=== PATIENT | male | born 1995 | race Two or more races ===

== ENCOUNTER 2020-07-06 14:47 | Emergency (ER) | payer MEDICAID, SELFPAY ==
--- NOTE | ~2020-07-06 | XR_ITS ---
EXAMINATION: XR CHEST CLINICAL INFORMATION: Chest pain COMPARISON: 08/24/2018 TECHNIQUE: Frontal view of the chest was obtained. FINDINGS: No significant abnormality is noted involving the heart, lungs, mediastinum, bony thorax or soft tissues. XR/XR chest 1V IMPRESSION: Unremarkable examination.
[2020-07-06 14:50] VITALS: BP 106/72; PULSE 83; RESP 20; TEMP 37.7; O2SAT 98; BMI 19.6
--- NOTE | 2020-07-06 15:05 | ECG_ITS ---
Test Reason : CHEST PAIN Blood Pressure : / mmHG Vent. Rate : 065 BPM Atrial Rate : 065 BPM P-R Int : 140 ms QRS Dur : 090 ms QT Int : 398 ms P-R-T Axes : 050 000 001 degrees QTc Int : 413 ms Normal sinus rhythm Normal ECG No previous ECGs available Referred By: Generic ED Physician Electronically Signed By:ZOLTAN KHAN MD
[2020-07-06 15:29] LABS: MANUAL DIFF FLAG NO
[2020-07-06 15:38] LABS: Basophils Absolute Auto 0.1 X10*3/uL (0.0-0.2); Basophils Percent Auto 0.5 % (0-2); Eosinophils Absolute Auto 0.1 X10*3/uL (0.0-0.4); Eosinophils Percent Auto 0.8 % (0-4); Hematocrit 41.2 % (42-52); Hemoglobin 14.2 g/dl (14.0-18.0); Imm Gran Abs Auto 0.04 X10*3/uL (0.00-0.03); Imm Gran Pct Auto 0.3 % (0.0-0.4); Lymphocytes Percent Auto 8.6 % (20-40); Mean Corpuscular HGB Conc 34.5 g/dl (31.0-36.0); Mean Corpuscular Hemoglobin 31.7 pg (27.0-33.0); Mean Platelet Volume 10.3 fL (9.4-12.4); Monocytes Absolute Auto 0.5 X10*3/uL (0.1-1.2); Monocytes Percent Auto 4.5 % (2-11); Neutrophils Absolute Auto 10.1 X10*3/uL (2.0-8.3); Neutrophils Percent Auto 85.3 % (45-73); Platelet Count 250 X10*3/uL (160-400); Red Blood Count 4.48 X10*6/uL (4.60-5.80); Red Cell Distribution Width 11.6 % (11.0-16.0); White Blood Count 11.9 X10*3/uL (4.8-10.8)
[2020-07-06 15:54] LABS: Anion Gap 18 (12-20); Blood Urea Nitrogen 10 mg/dL (9-16); Calcium 9.7 mg/dL (8.4-10.2); Carbon Dioxide 19 mmol/L (22-29); Chloride 111 mmol/L (96-108); Creatinine Clr Calc Pharmacy 130.1; Estimated Glomerular Filt Rate > 60; Glucose Random 97 mg/dL (60-115); Lipase 17 U/L (8-78); Potassium 3.6 mmol/L (3.3-5.1); Sodium 144 mmol/L (135-145)
[2020-07-06 16:00] LABS: Troponin-I High Sensitivity < 3.5 ng/L (<3.5-35.0)
[2020-07-06 16:04] VITALS: BP 122/61; PULSE 90; RESP 18; TEMP 36.3; O2SAT 99
--- NOTE | 2020-07-06 16:04 | ED_ITS ---
HPI - Chest Pain General Chief Complaint: Chest Pain Stated Complaint: CHEST PAIN Time Seen by Provider: 07/06/20 15:14 Source: patient Mode of arrival: ambulatory Limitations: no limitations History of Present Illness HPI narrative: 25 yo male using pills for months now, wants to get off of them unsure what they were but thinks it was fentanyl, he took an oxy today then about 1.5 hours later took a suboxone because he had restless legs now he notes he feels terrible, anxious, sweaty, wants to crawl out of his skin, his chest hurts this all started around 1pm, did take suboxone for a year in the past MD complaint: chest pain Onset (ago): hour(s) (1pm today) Prior episodes: No Onset: associated with drug use Pain location: substernal Pain radiation: none Severity: moderate Quality: aching Relieving factors: nothing Exacerbating factors: nothing Context: other (started right after suboxone use) Associated symptoms: nausea, diaphoresis, dyspnea and sense of impending doom Treatment prior to arrival: none Related Data Previous Rx's Medication Instructions Recorded lorazepam [Ativan] 1 mg PO TID PRN #4 tab 07/06/20 ondansetron 4 mg PO Q8H PRN #20 tab 07/06/20 Allergies Allergy/AdvReac Type Severity Reaction Status Date / Time nickel [NICKEL] Allergy Unknown RASH Unverified 11/23/19 16:17 Review of Systems Review of Systems: Constitutional : No Weight loss, No Fever, pos Chills ENT/Mouth : No sore throat, No Rhinorrhea Eyes: No Eye Pain, No Swelling Cardiovascular : pos Chest Pain, pos SOB, no Dyspnea on Exertion, No Orthopnea, No Edema, No Palpitations Respiratory : No Cough, No Sputum Gastrointestinal : pos Nausea, No Vomiting, No Diarrhea, No abdominal Pain, No Hematochezia, No Melena Genitourinary : No Dysuria, No Urinary Frequency Musculoskeletal : No joint pain, pos Myalgias, No Joint Swelling Skin : No Skin Lesions, No rash Neuro : No Weakness, No Numbness, No Dizziness, No Headache Psych : pos Anxiety/Panic, No Depression Heme/Lymph: No Bruising, No Lymphadenopathy Endocrine : No Polyuria, No Polydipsia All other systems reviewed and are negative PMFSH Past Medical History Attestation statement: The following information was validated with the patient. Medical History Asthma Drug abuse Social History Social History Alcohol intake: unknown Smoking Status: Unknown if ever smoked Use of substances other than those prescribed or required for medical reasons: Yes Substance Use Type: Opiates Advance Directives: No Advance Directives Information Provided: No Physical Exam Vital Signs: Vital Signs: Last Vital Signs Temp 97.4 F 07/06/20 16:04 Pulse 69 07/06/20 17:29 Resp 18 07/06/20 16:04 BP 130/67 07/06/20 17:29 Pulse Ox 99 07/06/20 16:04 Body Mass Index 19.6 Appearance: Alert. Oriented X3. Anxious, mild acute distress. Eyes: Pupils equal, round and reactive to light. ENT: Pharynx normal. Neck: Normal inspection. Neck supple. CVS: Normal heart rate and rhythm. Pulses normal. Respiratory: No respiratory distress. Breath sounds normal. Abdomen: Soft and non-tender. Skin: Skin warm and dry. Normal skin color. Normal skin turgor. Extremities: No lower extremity edema. No calf ttp Neuro: Oriented X 3. No motor deficit. No sensory deficit. Course Course Course Narrative: feels much better plan to follow up with suboxone clinic Wednesday and not use will DC home with 4 pills of ativan so he can stay away from opiates and zofran MDM - Chest Pain MDM Narrative Medical decision making narrative: 25 yo male with substance abuse here with precipitated withdrawal after taking suboxone while taking pills at this time I do not suspect ACS, PE he is PERC negative it all started after taking the suboxone he didn't realize there was narcan in the suboxone - will obtain basic labs, CXR, EKG, - PO ativan offer recovery coaches Lab Data Result diagrams: 07/06/20 15:26 07/06/20 15: Labs: Lab Results 07/06/20 07/06/20 07/06/20 Range/Units 15:26 15:26 15:26 WBC 11.9 H (4.8-10.8) X10*3/uL RBC 4.48 L (4.60-5.80) X10*6/uL Hgb 14.2 (14.0-18.0) g/dl Hct 41.2 L (42-52) % MCV 92.0 (80-98) fL MCH 31.7 (27.0-33.0) pg MCHC 34.5 (31.0-36.0) g/dl RDW 11.6 (11.0-16.0) % Plt Count 250 (160-400) X10*3/uL MPV 10.3 (9.4-12.4) fL Immature Gran % (Auto) 0.3 (0.0-0.4) % Neut % (Auto) 85.3 H (45-73) % Lymph % (Auto) 8.6 L (20-40) % Nuckolls % (Auto) 4.5 (2-11) % Eos % (Auto) 0.8 (0-4) % Baso % (Auto) 0.5 (0-2) % Lymph # (Auto) 1.0 L (1.2-4.9) X10*3/uL [place]olls # (Auto) 0.5 (0.1-1.2) X10*3/uL Eos # (Auto) 0.1 (0.0-0.4) X10*3/uL Baso # (Auto) 0.1 (0.0-0.2) X10*3/uL Abs Immat Gran (auto) 0.04 H (0.00-0.03) X10*3/uL Absolute Neuts (auto) 10.1 H (2.0-8.3) X10*3/uL Absolute Nucleated RBC 0.000 (0.0-0.012) X10*3/uL Nucleated RBC % (auto) 0.0 (0.0-0.2) /100WBC Sodium 144 (135-145) mmol/L Potassium 3.6 (3.3-5.1) mmol/L Chloride 111 H (96-108) mmol/L Carbon Dioxide 19 L (22-29) mmol/L Anion Gap 18 (12-20) BUN 10 (9-16) mg/dL Creatinine 0.80 (0.5-1.4) mg/dL Estim Creat Clear Calc 130.1 Estimated GFR > 60 Random Glucose 97 (60-115) mg/dL Calcium 9.7 (8.4-10.2) mg/dL Troponin I High Sens < 3.5 (<3.5-35.0) ng/L Lipase 17 (8-78) U/L Urine Opiates Screen (Not Detect) Ur Barbiturates Screen (Not Detect) Ur Phencyclidine Scrn (Not Detect) Ur Amphetamines Screen (Not Detect) U Benzodiazepines Scrn (Not Detect) Urine Cocaine Screen (Not Detect) U Marijuana (THC) Screen (Not Detect) 07/06/20 Range/Units 16:07 WBC (4.8-10.8) X10*3/uL RBC (4.60-5.80) X10*6/uL Hgb (14.0-18.0) g/dl Hct (42-52) % MCV (80-98) fL MCH (27.0-33.0) pg MCHC (31.0-36.0) g/dl RDW (11.0-16.0) % Plt Count (160-400) X10*3/uL MPV (9.4-12.4) fL Immature Gran % (Auto) (0.0-0.4) % Neut % (Auto) (45-73) % Lymph % (Auto) (20-40) % Nuckolls % (Auto) (2-11) % Eos % (Auto) (0-4) % Baso % (Auto) (0-2) % Lymph # (Auto) (1.2-4.9) X10*3/uL [place]oll[place] # (Auto) (0.1-1.2) X10*3/uL Eos # (Auto) (0.0-0.4) X10*3/uL Baso # (Auto) (0.0-0.2) X10*3/uL Abs Immat Gran (auto) (0.00-0.03) X10*3/uL Absolute Neuts (auto) (2.0-8.3) X10*3/uL Absolute Nucleated RBC (0.0-0.012) X10*3/uL Nucleated RBC % (auto) (0.0-0.2) /100WBC Sodium (135-145) mmol/L Potassium (3.3-5.1) mmol/L Chloride (96-108) mmol/L Carbon Dioxide (22-29) mmol/L Anion Gap (12-20) BUN (9-16) mg/dL Creatinine (0.5-1.4) mg/dL Estim Creat Clear Calc Estimated GFR Random Glucose (60-115) mg/dL Calcium (8.4-10.2) mg/dL Troponin I High Sens (<3.5-35.0) ng/L Lipase (8-78) U/L Urine Opiates Screen Not Detected (Not Detect) Ur Barbiturates Screen Not Detected (Not Detect) Ur Phencyclidine Scrn Not Detected (Not Detect) Ur Amphetamines Screen Not Detected (Not Detect) U Benzodiazepines Scrn Not Detected (Not Detect) Urine Cocaine Screen Not Detected (Not Detect) U Marijuana (THC) Screen POSITIVE H (Not Detect) ECG Data ECG #1: Attestation: I personally reviewed and interpreted this ECG as follows: ECG interpretation date: 07/06/20 ECG interpretation time: 16:42 Interpretation: Rate: 65 Rhythm: NSR [place]: normal Normal P waves. Normal IGLESIA. Normal QRS complex. ST T wave : nonspecific, no CHERY, inverted III and aVF qTC: normal prior studies: no acute ischemia The study has been interpreted contemporaneously by me. . Discharge Plan Discharge Clinical Impression: Opiate withdrawal Patient Disposition: Home, Self-Care Instructions: Opioid Withdrawal (ED) Additional Instructions: return to ED for any worsening symptoms or concerns Prescriptions: New ondansetron 4 mg tablet,disintegrating 4 mg PO Q8H PRN (Reason: nausea and vomiting) Qty: 20 RF: 0 lorazepam [Ativan] 1 mg tablet 1 mg PO TID PRN (Reason: anxiety) Qty: 4 RF: 0
[2020-07-06] MEDS: LORazepam 1 MG TABLET 2 MG PO (16:16)
[2020-07-06] MEDS: Ketorolac Tromethamine 60 MG/2 ML VIAL IM (16:17)
--- NOTE | 2020-07-06 16:21 | PC.NURSE ---
Pt agitated, restless, taking sheets off bed, intermittent swearing. Pt VSS. Attempted to provide calm environment, decrease stimuli and offer verbal reassurance. Mother at bedside.
[2020-07-06 16:22] VITALS: PULSE 93
[2020-07-06 16:46] LABS: Amphetamine Screen Urine Not Detected (Not Detect); Barbiturates, Urine Not Detected (Not Detect); Benzodiazepines Screen Urine Not Detected (Not Detect); Cannabinoid Screen Urine POSITIVE (Not Detect); Cocaine Screen Urine Not Detected (Not Detect); Opiate Screen Urine Not Detected (Not Detect); Phencyclidine Screen Urine Not Detected (Not Detect)
[2020-07-06 17:29] VITALS: BP 130/67; PULSE 69
[2020-07-06] MEDS: cloNIDine HCL 0.2 MG TABLET PO (17:29)
--- NOTE | 2020-07-06 18:05 | MHC.RECOVSUP ---
Recovery Support note: Patient is a 25 year old [place] speaking male who presented to [facility] ED in precipitated withdrawal after taking Suboxone shortly after a pill. This report writer met with patient and his mother in ED 17 to discuss recovery supports. This report writer provided education to patient on why he is in withdrawal. Patient reports he was taking Suboxone for about a year however did not go to his last appointment and has been using. Encouraged patient to continue with the Suboxone and to avoid all other drugs. Patient acknowledged and reports he doesn't want to have to experience this again. Discussed recovery supports with patient. Patient expressed interest in getting connected with a therapist for ongoing support. This report writer submitted a referral to [facility] on patient's behalf. Discussed case with patient's ED provider.
[2020-07-06 18:58] VITALS: BP 100/46; PULSE 87; RESP 16; O2SAT 98
== END 2020-07-06 19:00 | disposition home or self-care (01) ==
PROVIDERS: Emergency Medicine; Emergency Provider Emergency Medicine
DX: F11.23 Opioid dependence with withdrawal (principal); R06.00 Dyspnea, unspecified; Z79.899 Other long term (current) drug therapy; Z71.51 Drug abuse counseling and surveillance of drug abuser
CPT/HCPCS: 36415; 71045; 80048; 80307; 83690; 84484; 85025; 93005; 96372; 99285; J1885

== ENCOUNTER 2020-11-10 22:46 | Emergency (ER) | payer MEDICAID, SELFPAY ==
--- NOTE | ~2020-11-10 | XR_ITS ---
EXAMINATION: XR HAND, RIGHT CLINICAL INFORMATION: Trauma COMPARISON: None TECHNIQUE: PA, lateral, and oblique views of the right hand. FINDINGS: The bones and soft tissues are normal. No fracture. Alignment is anatomic. Joint spaces are maintained. No erosions or soft tissue calcifications. XR/XR hand RT min 3V IMPRESSION: Normal right hand.
[2020-11-10 22:57] VITALS: BP 105/62; PULSE 80; RESP 16; TEMP 37.1; O2SAT 97; BMI 24.2
--- NOTE | 2020-11-10 23:22 | ED.EXTPRO ---
HPI - Extremity Problem General Chief complaint: Extremity Injury, Upper Stated complaint: hand inj Time Seen by Provider: 11/10/20 23:22 Source: patient Mode of arrival: ambulatory Limitations: no limitations History of Present Illness HPI Narrative: 25 y/o right hand dominant male presenting with right hand and thumb pain that started this evening after he accidentally caught his thumb on his leg when he was chasing his kitten. He bent his thumb far backward and heard a pop. He had immediate pain. No swelling. No numbness or tingling. Pain is located on the lateral aspect of his thumb and his thenar eminence. He can move it slightly but it hurts. MD Complaint: joint paint Onset (ago): hour(s) Pain Consistency: constant Location: right and upper extremity Severity scale (1-10): 5 Quality: aching Radiation: none Relieving factors: cold therapy and immobilization Exacerbating factors: range of motion and palpation Associated symptoms: denies other symptoms Related Data Previous Rx's Medication Instructions Recorded lorazepam 1 mg tablet (Ativan) 1 mg PO TID PRN #4 tab 07/06/20 ondansetron 4 mg disintegrating 4 mg PO Q8H PRN #20 tab 07/06/20 tablet ibuprofen 600 mg tablet 600 mg PO Q8H PRN #20 tab 11/11/20 Allergies Allergy/AdvReac Type Severity Reaction Status Date / Time nickel [NICKEL] Allergy Unknown RASH Unverified 11/23/19 16:17 Review of Systems Review of Systems: Constitutional: No Fever, No Chills Gastrointestinal: No Nausea, No Vomiting Musculoskeletal: + joint pain, No Myalgias Skin: No Skin Lesions, No rash Neuro: No Weakness, No Numbness Heme/Lymph: No Bruising PMFSH Past Medical History Medical History Asthma Drug abuse Social History Social History Alcohol intake: unknown Substance Use Type: Opiates Advance Directives: No Advance Directives Information Provided: No Physical Exam Vital Signs: Vital Signs: Last Vital Signs Temp 98.8 F 11/10/20 22:57 Pulse 80 11/10/20 22:57 Resp 16 11/10/20 22:57 BP 105/62 11/10/20 22:57 Pulse Ox 97 09/05/21 22:57 Body Mass Index 24.2 Appearance: Alert. Oriented X3. No acute distress. HEENT: normal inspection CVS: Normal heart rate and rhythm. Pulses normal. Respiratory: No respiratory distress. Skin: Skin warm and dry. Normal skin color. Normal skin turgor. No rashes. Extremities: right hand with mild swelling of the thenar eminence with moderate tenderness, no ecchymosis. he is able to bend the thumb at the MCP and DIP but very minimally, entire thumb is tender, no sensory deficit. cap refill <3 sec. 2+ radial pulse. no metacarpal tenderness. Neuro: Oriented X 3. No motor deficit. No sensory deficit. Course Course Course Narrative: 25 yo male presenting with right thumb pain after hyperextension injury. XR is normal. Concern for possible ligamentous injury ?UCL. Will place in thumb spica splint and have him follow up with Ortho on Wednesday. Patient agrees with plan. Reevaluation(s) Reevaluation #1: Splint is in adequate position. Patient reports it feels good and his pain is improved with immobilization. NSAID sent to pharmacy. Discharge Plan Discharge Clinical Impression: Injury of thumb, right Qualifiers: Encounter type: initial encounter Qualified Code(s): S69.91XA - Unspecified injury of right wrist, hand and finger(s), initial encounter Patient Disposition: Home, Self-Care Instructions: Galener's Thumb (ED) Additional Instructions: Elevate your hand when possible. Wear the splint until you are evaluated by Orthopedics. Call Orthopedics Wednesday to arrange an appointment for next week. Take the prescribed ibuprofen as needed for pain. Take with food. Take Tylenol as needed for pain as well. Prescriptions: New ibuprofen 600 mg tablet 600 mg PO Q8H PRN (Reason: pain) Qty: 20 RF: 0 No Action ondansetron 4 mg tablet,disintegrating 4 mg PO Q8H PRN (Reason: nausea and vomiting) Qty: 20 RF: 0 lorazepam [Ativan] 1 mg tablet 1 mg PO TID PRN (Reason: anxiety) Qty: 4 RF: 0 Referrals: Gerry Spencer PA-C [Physician Appraisal Technician] - 2 days (thumb injury, ?ligament tear)
== END 2020-11-11 00:56 | disposition home or self-care (01) ==
PROVIDERS: Emergency Provider Internal Medicine
DX: S69.91XA Unspecified injury of right wrist, hand and finger(s), initial encounter (principal); S60.811A Abrasion of right wrist, initial encounter; M25.531 Pain in right wrist; Y28.9XXA Contact with unspecified sharp object, undetermined intent, initial encounter; Y93.9 Activity, unspecified; Y92.9 Unspecified place or not applicable; Y99.9 Unspecified external cause status; Z79.899 Other long term (current) drug therapy
CPT/HCPCS: 29125; 73130; 99283

== ENCOUNTER 2022-09-20 10:10 | Emergency (ER) | payer MEDICAID, SELFPAY ==
--- NOTE | ~2022-09-20 | XR_ITS ---
EXAMINATION: XR CHEST CLINICAL INFORMATION: Cough. COMPARISON: 07/06/2020 chest radiograph. TECHNIQUE: 2 views of the chest were obtained. FINDINGS: The lungs are clear. There are no pleural effusions. The heart and mediastinal structures are unremarkable. There is a pectus excavatum deformity. XR/XR chest 2V IMPRESSION: No acute cardiopulmonary process.
[2022-09-20 10:22] VITALS: BP 118/74; PULSE 67; RESP 18; TEMP 36.7; O2SAT 96; BMI 25.8
[2022-09-20 10:56] LABS: COVID-19 Test Negative (Negative); IDNOW Serial# 6674DD1D
--- NOTE | 2022-09-20 11:37 | ED_ITS ---
HPI - URI/Sore Throat General Chief Complaint: Upper Respiratory Symptoms Stated Complaint: coughing, fatigue Time Seen by Provider: 09/20/22 11:00 Source: patient Mode of arrival: ambulatory Limitations: no limitations History of Present Illness HPI Narrative: Patient is a 27-year-old male presents emergency department for evaluation of persistent cough. He reports that he was ill 4 weeks ago with upper respiratory symptoms and cough which lasted 2 weeks. He was seen initially at [facility] was given prescription for an inhaler as he has a history of childhood asthma. his symptoms had resolved for approximately 1 week. He states that over the past 4-5 days he has had recurrence of productive cough with green phlegm, subjective fevers, shortness of breath that is worse with coughing. denies chest pain. Denies history of DVT/ PE. Related Data Previous Rx's Medication Instructions Recorded lorazepam 1 mg tablet (Ativan) 1 mg PO TID PRN anxiety #4 tabs 07/06/20 ondansetron 4 mg disintegrating 4 mg PO Q8H PRN nausea and 07/06/20 tablet vomiting #20 tabs ibuprofen 600 mg tablet 600 mg PO Q8H PRN pain #20 tabs 11/11/20 azithromycin 250 mg tablet See Rx Instructions PO .COMPLEX #6 09/20/22 tabs Allergies Allergy/AdvReac Type Severity Reaction Status Date / Time nickel [NICKEL] Allergy Unknown RASH Verified 09/20/22 10:23 Review of Systems Review of Systems: Constitutional: Positive fever. Positive chills. No weakness. Positive fatigue. ENT/ Mouth: No Ear Pain, positive Nasal Congestion, positive sore throat, No Rhinorrhea, No Swallowing Difficulty Skin: No rash or itching. Cardiovascular: No chest pain. No palpitations. Respiratory: No shortness of breath. Positive cough. No sputum production. Gastrointestinal: No nausea. No vomiting. No diarrhea. No abdominal pain. Genitourinary: No burning micturition. No urinary frequency. Neurologic: No headache. No dizziness. No syncope. No numbness or tingling in the extremities. Musculoskeletal: No muscle pain. No back pain. No joint pain or stiffness. Yes all other systems are reviewed and are negative PMFSH Past Medical History Attestation statement: The following information was validated with the patient. Source: old records reviewed Medical History Asthma Drug abuse Social History Social History Alcohol intake: unknown Substance Use Type: Opiates Advance Directives: No Advance Directives Information Provided: Yes Physical Exam Vital Signs: Vital Signs: Last Vital Signs Temp 98.0 F 09/20/22 10:22 Pulse 67 09/20/22 10:22 Resp 18 09/20/22 10:22 BP 118/74 09/20/22 10:22 Pulse Ox 96 09/20/22 10:22 O2 Del Method Room Air 09/20/22 10:22 BMI result Body Mass Index 25.8 Vital signs have been reviewed as normal and appeared to be correct. Blood pressure normal.? Heart rate normal.? Respiration rate normal. Temperature normal.? Oxygen saturation normal. Appearance: Alert.?Oriented to person, place and time. No acute distress.?Normal affect. Eyes: Pupils equal, round and reactive to light.? ENT: TM normal bilaterally. Pharynx normal.?? Neck: Normal inspection.? Neck supple.??No cervical adenopathy CVS: Heart sounds normal. Normal heart rate and rhythm.? Pulses normal.?? Respiratory: No respiratory distress.? Lung sounds clear to auscultation bilaterally?? Abdomen: Soft and non-tender. Normoactive bowel sounds. Skin: Skin warm and dry.? Normal skin color.? ? Extremities: No lower extremity edema.? Neuro: Moves all extremities spontaneously. Sensation intact bilaterally. No motor deficits. Ambulates with normal steady gait. Medical Decision Making Medical Decision Making MDM Narrative: Patient is a 27-year-old malewith past medical history of childhood asthma, presenting for evaluation of upper respiratory symptoms.? COVID-19 testing is negative.? chest x-ray is without any acute cardiopulmonary process? At this time history and physical exam not consistent with ACS/PE/pneumonia. PERC negative.? Well-appearing, nontoxic, afebrile, no tachycardia or tachypnea/hypoxia.? Speaking clear full sentences, ambulatory with steady gait.? Discussed conservative treatment including rest, hydration, Tylenol/ibuprofen as needed for fever and body aches, saline nasal spray, humidifier, [id number] cold medication. symptoms at this time most consistent with bronchitis, advised to continue use of albuterol inhaler as prescribed outpatient in addition will trial a course of empiric azithromycin for potential early CAP.? Advised to follow-up with primary care provider as needed, discussed reasons to return back to the emergency department.? All questions were answered.? Patient discharged home in stable condition.? Provided with a return to work/school note. Differential Diagnosis Differential Diagnoses: The differential diagnosis associated with the presentation includes ( as noted above) Lab Data MDM Lab Attestation statement: I reviewed the patient's lab results. ( as noted above) Labs: Lab Results 09/20/22 Range/Units 10:38 COVID-19 (SHAHEEN) Negative (Negative) COVID-19 Clin Com See Note Independent Interpretation I performed an independent interpretation of an: Plain X-Ray ( I have personally interpreted XR imaging of the chest and agree with radiologist impression no acute pneumonia or pneumothorax) Radiology Impression Discussion of test interpretation with radiology: I have reviewed the radiologist's reading. Radiologist Impression: XR/XR chest 2V IMPRESSION: No acute cardiopulmonary process. External Record Review External record reviewed: Prior outpatient labs Prescription Management I considered prescription management with: Antibiotic ( azithromycin) Discharge Plan Discharge Clinical Impression: Bronchitis Patient Disposition: Home, Self-Care Instructions: Upper Respiratory Infection (ED), Acute Bronchitis (ED) Additional Instructions: Be sure to rest, stay well hydrated drinking plenty of fluids, eat small frequent meals. Tylenol/ibuprofen can be used as needed for fever/pain. [id number] cold medications may be helpful as well for symptoms. Saline nasal spray, humidifier may be helpful for nasal congestion. continue using your albuterol inhaler as needed. take azithromycin as prescribed in complete the entire course. You may return to the emergency department with any new or worsening symptoms or concerns. Follow-up with your primary care provider as needed. Should remain out of school/ work until symptoms have resolved and have been without a fever for 24 hours without the use of Tylenol or ibuprofen. Prescriptions: New azithromycin 250 mg tablet See Rx Instructions .ROUTE .COMPLEX Qty: 6 0RF Rx Instructions: For 250 mg dose pack: take 500 mg today (day 1), then 250 mg for 4 days (days 2-5) No Action ondansetron 4 mg tablet,disintegrating 4 mg PO Q8H PRN (Reason: nausea and vomiting) Qty: 20 0RF lorazepam [Ativan] 1 mg tablet 1 mg PO TID PRN (Reason: anxiety) Qty: 4 0RF ibuprofen 600 mg tablet 600 mg PO Q8H PRN (Reason: pain) Qty: 20 0RF Referrals: [facility] [Primary Care Provider] -
== END 2022-09-20 11:58 | disposition home or self-care (01) ==
PROVIDERS: Emergency Provider Student in an Organized Health Care Education/Training Program
DX: J40 Bronchitis, not specified as acute or chronic (principal); R05.9 Cough, unspecified; Z20.822 Contact with and (suspected) exposure to COVID-19; Z20.828 Contact with and (suspected) exposure to other viral communicable diseases; Z79.899 Other long term (current) drug therapy
CPT/HCPCS: 71046; 87635; 99283

== ENCOUNTER 2022-11-16 18:19 | Emergency (ER) | payer MEDICAID, SELFPAY | END 2022-11-16 21:25 | disposition left against medical advice (07) | PROVIDERS: Emergency Provider Emergency Medicine | DX: M54.50 Low back pain, unspecified (principal) ==

== ENCOUNTER 2022-11-20 10:41 | Outpatient (REF) | payer MEDICAID, SELFPAY ==
--- NOTE | ~2022-11-20 | XR_ITS ---
EXAMINATION: XR LUMBOSACRAL SPINE CLINICAL INFORMATION: Low back pain. COMPARISON: 02/21/2019 TECHNIQUE: Three views of the lumbosacral spine. FINDINGS: There are 5 nonrib-bearing lumbar vertebral bodies normal sagittal alignment. Vertebral body heights and intervertebral disc spaces are maintained. Sacroiliac joints are intact. XR/XR lumbar spine 2-3V IMPRESSION: No acute abnormality.
== END 2022-11-20 10:42 | disposition home or self-care (01) ==
LOC: HO.HHCX 10:41
PROVIDERS: Visit Provider Student in an Organized Health Care Education/Training Program
DX: M54.50 Low back pain, unspecified (principal)
CPT/HCPCS: 72100